=== PATIENT | female | born 1950 | race Caucasian/White ===

== ENCOUNTER → 2024-03-02 11:19 | Outpatient (REF) | payer MEDICARE, OTHER, SELFPAY | LOC: RAD 11:19 | PROVIDERS: ATTENDING PHYSICIAN Nurse Practitioner Family | DX: M25.572 Pain in left ankle and joints of left foot (principal) | CPT/HCPCS: 73610 ==

== ENCOUNTER → 2024-04-13 13:28 | Outpatient (REF) | payer MEDICARE, OTHER, SELFPAY ==
[2024-04-13 15:06] LABS: ALT (SGPT) 32 U/L (0-35); AST (SGOT) 32 U/L (14-36); Albumin 4.4 g/dl (3.5-5.0); Alkaline Phosphatase 50 U/L (38-126); Blood Urea Nitrogen 19 mg/dl (7-17); Calcium 9.8 mg/dl (8.4-10.2); Carbon Dioxide 29 mmol/L (22-30); Chloride 100 mmol/L (98-107); Glucose 102 mg/dl (70-99); Sodium 139 mmol/L (135-145); Total Bilirubin 0.3 mg/dl (0.2-1.3); Total Protein 6.8 g/dl (6.3-8.2); eGFR > 60.00
[2024-04-13 15:39] LABS: Vitamin D, 25-OH*** 55.1 ng/mL (30-80)
== END ==
LOC: WDC 13:28
PROVIDERS: ATTENDING PHYSICIAN Obstetrics & Gynecology; FAMILY PHYSICIAN Internal Medicine Geriatric Medicine; OTHER PHYSICIAN Internal Medicine Rheumatology
DX: Z12.31 Encounter for screening mammogram for malignant neoplasm of breast (principal); M81.0 Age-related osteoporosis without current pathological fracture; E55.9 Vitamin D deficiency, unspecified
CPT/HCPCS: 36415; 77063; 77067; 80053; 82306

== ENCOUNTER → 2024-05-19 13:42 | Outpatient (REF) | payer MEDICARE, OTHER, SELFPAY | LOC: HWRAD 13:42 | PROVIDERS: ATTENDING PHYSICIAN Internal Medicine Rheumatology; FAMILY PHYSICIAN Internal Medicine Geriatric Medicine; REFERRING PHYSICIAN Obstetrics & Gynecology | DX: Z78.0 Asymptomatic menopausal state (principal) | CPT/HCPCS: 77080 ==

== ENCOUNTER → 2024-09-29 10:19 | Outpatient (REF) | payer MEDICARE, OTHER, SELFPAY | LOC: RAD 10:19 | PROVIDERS: ATTENDING PHYSICIAN Internal Medicine Geriatric Medicine | DX: R60.0 Localized edema (principal) | CPT/HCPCS: 93971 ==

== ENCOUNTER → 2024-12-26 12:42 | Outpatient (REF) | payer MEDICARE, OTHER, SELFPAY | LOC: RCS 12:42 | PROVIDERS: ATTENDING PHYSICIAN Internal Medicine Geriatric Medicine | DX: R94.31 Abnormal electrocardiogram [ECG] [EKG] (principal) | CPT/HCPCS: 93017; 93350 ==

== ENCOUNTER → 2025-04-17 11:04 | Outpatient (REF) | payer MEDICARE, OTHER, SELFPAY | LOC: WDC 11:04 | PROVIDERS: ATTENDING PHYSICIAN Obstetrics & Gynecology; FAMILY PHYSICIAN Internal Medicine Geriatric Medicine | DX: Z12.31 Encounter for screening mammogram for malignant neoplasm of breast (principal) | CPT/HCPCS: 77063; 77067 ==

== ENCOUNTER → 2025-04-27 14:59 | Outpatient (REF) | payer MEDICARE, OTHER, SELFPAY ==
[2025-04-27 16:20] LABS: Vitamin D, 25-OH*** 52.3 ng/mL (30-80)
== END ==
LOC: REG 14:59
PROVIDERS: ATTENDING PHYSICIAN Internal Medicine Rheumatology; FAMILY PHYSICIAN Internal Medicine Geriatric Medicine
DX: E55.9 Vitamin D deficiency, unspecified (principal)
CPT/HCPCS: 36415; 82306

== ENCOUNTER → 2025-05-01 16:37 | Outpatient (REF) | payer MEDICARE, OTHER, SELFPAY ==
[2025-05-01 17:52] LABS: C-Reactive Protein < 5.00 mg/L (0.0-10.00)
[2025-05-03 13:45] LABS: Rheumatoid Agglutinin Less Than 10 IU (<10 IU)
== END ==
LOC: REG 16:37
PROVIDERS: ATTENDING PHYSICIAN Internal Medicine Rheumatology; FAMILY PHYSICIAN Internal Medicine Geriatric Medicine
DX: M25.50 Pain in unspecified joint (principal); M15.9 Polyosteoarthritis, unspecified
CPT/HCPCS: 36415; 72100; 72202; 85652; 86140; 86200; 86430